=== PATIENT | female | born 1960 | race Caucasian/White ===

== ENCOUNTER → 2018-02-14 09:30 | Outpatient (CLI) | payer OTHER, SELFPAY ==
--- NOTE | 2018-02-14 09:32 | DI.MRI.S_ITS ---
PROCEDURE: MR LUMBAR SPINE WO CON INDICATIONS: Eval L Spine TECHNIQUE: Noncontrast sagittal T1 spin echo and T2 fast echo, sagittal STIR, axial T1 and T2 fast spin echo through the lumbar spine. In cases with scoliosis, additional coronal T2 fast spin echo may be performed. COMPARISON: [facility] [place] , MR, LUMBAR SPINE W/O CONTRAST, 04/30/2007, 10:58. [facility] [place], CR, XR LUMBAR SPINE WITH OBLIQUES, 07/01/2017, 8:57. FINDINGS: Image quality: Excellent. Alignment and Curvature: 5 lumbar type vertebral bodies are present by plain film. There is normal bony alignment. Bone Marrow: Marrow is of normal overall signal. No acute vertebral body compression fractures. There is mild reactive signal within the endplates adjacent to the L3-L4, L4-L5, and L5-S1 intervertebral discs. Spinal Cord: Conus medullaris terminates at the T12-L1 disc space level. Visualized cord demonstrates normal signal and size. Paraspinous Soft Tissues: No paravertebral masses. L1-L2: Mild facet and ligamentum flavum hypertrophy bilaterally. No significant canal, nor foraminal stenosis. L2-L3: Mild facet and ligamentum flavum bilaterally. Mild epidural lipomatosis. Mild canal stenosis. No foraminal stenosis. No change. L3-L4: Mild disc height loss and desiccation. Mild diffuse disc bulge. Moderate bilateral facet hypertrophy. Increased, mild canal stenosis. Increased, mild bilateral foraminal stenosis. L4-L5: Mild disc height loss and desiccation. Mild diffuse disc bulge. Moderate bilateral facet hypertrophy. Increased, mild canal stenosis. Increased, bilateral foraminal stenosis. L5-S1: Mild disc height loss and desiccation. Mild diffuse disc bulge. Mild facet hypertrophy bilaterally. Increased, mild canal stenosis. Increased, moderate bilateral foraminal stenosis. IMPRESSION: 1. Multilevel degenerative disc and facet disease, as well as ligamentum flavum hypertrophy and epidural lipomatosis. 2. Mild multilevel canal stenoses as above. 3. Multilevel foraminal stenoses, worst at L5-S1 bilaterally, where there are moderate foraminal stenoses present. Dictated by: Annemarie Schaefer M.D. on 02/14/2018 at 12:12 Approved by: Annemarie Schaefer M.D. on 02/14/2018 at 12:46
== END ==
PROVIDERS: PCP Family Medicine; Visit Provider Physical Medicine & Rehabilitation
DX: M47.817 Spondylosis without myelopathy or radiculopathy, lumbosacral region (principal); M51.36 Other intervertebral disc degeneration, lumbar region; M51.37 Other intervertebral disc degeneration, lumbosacral region; M48.061 Spinal stenosis, lumbar region without neurogenic claudication; M48.07 Spinal stenosis, lumbosacral region
CPT/HCPCS: 72148

== ENCOUNTER 2018-03-23 08:08 | Outpatient (CLI) | payer OTHER, SELFPAY ==
[2018-03-23] VITALS (9 sets, daily range): BP systolic 123–151; BP diastolic 58–85; PULSE 75–84; RESP 16–18; TEMP 36.7; O2SAT 96–100
--- NOTE | 2018-03-23 08:09 | DI.RAD.S_ITS ---
PROCEDURE: PAIN L/S FACET INJ/BLK 1ST AYAD COMPARISON: None. INDICATIONS: SPONDYLOSIS FINDINGS: Fluoroscopic images demonstrating spinal needles placed at the L5-S1 levels as labeled on the films. Appropriate placement of the needle tip was confirmed with a small injection of contrast material. Dictated by: Ab Anton M.D. on 03/23/2018 at 13:23 Approved by: Ab Anton M.D. on 03/23/2018 at 13:23
[2018-03-23] MEDS: MIDAZOLAM 5 MG/5 ML VIAL IV (09:07)
[2018-03-23] MEDS: IOPAMIDOL 15 ML VIAL 3 ML INJ (09:12)
[2018-03-23] MEDS: BUPIVACAINE 0.5% (PF) VIAL 2 ML INJ (09:12)
[2018-03-23] MEDS: LIDOCAINE 1% 20 ML INJ 10 ML INJ (09:13)
[2018-03-23] MEDS: BETAMETHASONE 30 MG/5 ML MDV 12 MG INJ (09:13)
--- NOTE | 2018-03-23 09:14 | PC.NURSE ---
ASSISTING PT FROM TABLE AND TRANSPORTING TO POST PROC AREA IN STABLE CONDITION
--- NOTE | 2018-03-23 09:25 | PM.PROC.1 ---
Procedures Date/Time Date of procedure: 03/23/18 Time of procedure: 09:25 General Procedure description: PREOP DIAGNOSIS 1. FACET ARTHROPATHY, 2. AXIAL LBP, 3. MULTILEVEL DDD, POST OP DIAGNOSIS 1. FACET ARTHROPATHY, 2. AXIAL LBP, 3. MULTILEVEL DDD, PROCEDURES 1. FLUORSCOPICALLY GUIDED CONTRAST CONTROLLED FACET JOINT INJECTIONS BILATERAL L5/S1 PHUSICIAN: Crispin Quintero, INDICATIONS Funmilayo is referred by Dr. Blanchard for treatment of Axial LBP FINDINGS Multilevel Facet Arthropathy with Clinically significant axial LBP DESCRIPTION OF PROCEDURE Fluoroscopically guided, contrast-controlled bilateral L5/S1 facet joint injections. Following denial of allergy and review of potential side effects and complications, including, but not necessarily limited to, infection, allergic reaction, local tissue breakdown, stroke, temporary or permanent nerve injury, paralysis, and possible , the patient indicated that the patient understood and agreed to proceed. An informed consent document was signed by the patient, witnessed by a nurse, and placed in the patient's chart. Additionally, other treatment options including medications, modalities, and physical therapy were reviewed with the patient. After review of previous anaesthesic history and IV conscious sedation the patient was deemed safe to proceed with todays procedure with IV conscious sedation as ASA class II designation. Safety time-out was performed to confirm patient ID, procedure to be performed and site of procedure. IV sedation was accomplished with a combination of 3mg of Versed administered by the RN after DO order, titrated to patient comfort during the course of the procedure while the patient remained responsive to all verbal commands In the prone position, following sterile prep and drape of the lumbar region, the posterior aspect of the L5/S1 facet joints were identified fluoroscopically. The skin was anesthetized via a 25-gauge 1.5-inch needle with 1% lidocaine solution into the corresponding facet joints. At this point, a 22-gauge 5-inch spinal needle was atraumatically introduced and advanced under fluoroscopic guidance into the corresponding facet joints. Following negative aspiration, injections of approximately 0.2-cc of Isovue 200 confirmed interarticular placement without vascular uptake. The identical procedure was then performed at the L5/S1 facet joints on the left. Radiological data, including multiple fluoroscopic views of the lumbosacral spine, reveal a spinal needle at the L5/S1 facet joints bilaterally. Subsequent views show flow of contrast material both superiorly and inferiorly within the joint space without vascular or intrathecal uptake. At this point, a total of 0.5 cc including a mixture of 0.25 cc Marcaine and 0.25 cc betamethasone was injected without complication into each of the corresponding facet joints. The patient tolerated the procedure well without signs or symptoms of complications prior to transfer to the recovery area continued monitoring without incident. The patient was then transferred to the recovery area where they were observed for an appropriate period of time after the injection. The patient reported a VAS score of 7 prior to the procedure and a post-procedure VAS of 0. Total Fluoroscopy Time: 21.0 seconds Total conscious sedation time: 24 min POST OP INSTRUCTIONS The patient was provided a Pain Log to continue to record their response to the target-specific procedure prior to follow-up visit with their referring physician. Additionally, specific post-injection care instructions and a contact number to our office were provided if concerns arise regarding possible complications associated with the procedure are suspected. Crispin Quintero, Complications: none
--- NOTE | 2018-03-23 09:42 | PC.NURSE ---
Received pt from post procedure. pt awake and able to get from WC to chair without diffiiculty. Resumed monitoring from Nena MYLES
== END 2018-03-23 09:58 ==
LOC: RAD 08:09
PROVIDERS: PCP Family Medicine; Visit Provider Physical Medicine & Rehabilitation
DX: M47.817 Spondylosis without myelopathy or radiculopathy, lumbosacral region (principal); M51.37 Other intervertebral disc degeneration, lumbosacral region; M54.5 Low back pain
CPT/HCPCS: 64493; 99152; J0702; J2250

== ENCOUNTER 2018-08-02 08:52 | Outpatient (CLI) | payer OTHER, SELFPAY ==
[2018-08-02] VITALS (7 sets, daily range): BP systolic 130–163; BP diastolic 61–88; PULSE 69–82; RESP 16–18; TEMP 36.3; O2SAT 96–100
--- NOTE | 2018-08-02 08:53 | DI.RAD.S_ITS ---
PROCEDURE: PAIN L/S FACET INJ/BLK 1ST AYAD COMPARISON: [facility], XA, PAIN L/S FACET INJ/BLK 1ST AYAD, 03/23/2018, 10:09. INDICATIONS: SPONDYLOSIS FINDINGS: IMPRESSION: Dictated by: Alcidse Gale M.D. on 08/02/2018 at 11:09 Approved by: Alcides Gale M.D. on 08/02/2018 at 11:13
[2018-08-02] MEDS: MIDAZOLAM 5 MG/5 ML VIAL IV (09:30)
[2018-08-02] MEDS: fentaNYL 100 MCG/2 ML INJ 50 MCG IV (09:35)
[2018-08-02] MEDS: IOPAMIDOL 15 ML VIAL 3 ML INJ (09:39)
[2018-08-02] MEDS: LIDOCAINE 1% 20 ML INJ 10 ML INJ (09:39)
[2018-08-02] MEDS: BUPIVACAINE 0.5% (PF) VIAL 2 ML INJ (09:40)
[2018-08-02] MEDS: BETAMETHASONE 30 MG/5 ML MDV 12 MG INJ (09:41)
--- NOTE | 2018-08-02 09:48 | PC.NURSE ---
Pt tolerated procedure with 5mg Versed, 50mcg of Fentanyl and premedicated with 10mg valium. Pt was awake through the procedure. Able to get off table with standby assist. Transferred to pre procedure room via wheelchair for continued monitoring with Nena MYLES.
--- NOTE | 2018-08-02 10:00 | P.PCN_ITS ---
Procedures Date/Time Date of procedure: 08/02/18 Time of procedure: 09:55 General Procedure description: POST OP DIAGNOSIS 1. FACET ARTHROPATHY PROCEDURES 1. BILATERAL- L5 and S1 MB BLOCKS PHYSICIAN: Crispin Quintero DO INDICATIONS Funmilayo is referred by Dr. Blanchard for treatment of Bilateral Axial LBP. DESCRIPTION OF PROCEDURE Fluoroscopically guided, contrast-controlled bilateral L5 and S1 medial branch blocks with 0.5cc of 0.5% Marcaine. Following denial of allergy and review of potential side effects and complications, including, but not necessarily limited to, infection, allergic reaction, local tissue breakdown, nerve injury, paralysis, stroke and possible , the patient indicated that the patient understood and agreed to proceed. An informed consent document was signed by the patient, witnessed by a nurse, and placed in the patient's chart. After review of previous anaesthesic history and IV conscious sedation the patient was deemed safe to proceed with todays procedure with IV conscious sedation as ASA class II designation. Safety time-out was performed to confirm patient ID, procedure to be performed and site of procedure. IV sedation was accomplished with a combination of 5mg of Versed and 50mcg of Fentanyl was administered by the RN after DO order, titrated to patient comfort during the course of the procedure while the patient remained responsive to all verbal commands In the prone position, following sterile prep and drape of the lumbar region, the right L5 and S1 anatomical location of the medial branch of the dorsal ramus was identified fluoroscopically. Subsequently an anesthetic skin wheal using 1% lidocaine solution was initiated at each of the anatomical spots. Subsequently then a 22-gauge 3.5-inch spinal needle was atraumatically introduced and advanced under fluoroscopic guidance at each of the corresponding sites at the right L5 and S1 MB. After negative aspiration, 0.2 cc of Isovue 200 was injected, confirming placement without vascular or intrathecal uptake. Subsequently then 0.5 cc of 0.5% Marcaine solution was injected at each of the corresponding sites at the right L5 and S1 medial branch locations. The identical procedure was replicated on the left. The patient tolerated the procedure well without signs or symptoms of complications. The patient tolerated the procedure well without signs or symptoms of complications prior to transfer to the recovery area continued monitoring without incident. Post-procedure, the patient was monitored initiating provocative activities to measure the amount of relief from block of the facetogenic pain. The patient reported a VAS of 7 prior to the procedure and a post-procedure VAS of 1. It has been a pleasure to assist in the diagnostic and therapeutic care of your patient. Total Fluoroscopy Time: 24.8 seconds Total Conscious Sedation Time: 24min POST OP INSTRUCTIONS The patient was provided with a Pain Log to complete over the next several hours and subsequent days prior to the patient's follow up with the ordering physician. 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 The patient is aware, was provided, once again, with a Pain Log and will follow up with the referring physician for review and clinical correlation Crispin Quintero DO Complications: none
--- NOTE | 2018-08-02 10:00 | PC.NURSE ---
ACCEPTED CARE OF PT IN POST PROC AREA IN STABLE CONDITION
--- NOTE | 2018-08-03 12:32 | PC.NURSE ---
Follow up call made for post procedure Bilateral L5,& S1 Medial Branch Blocks. Left message as pt did not answer the phone.
== END 2018-08-02 10:36 | disposition home or self-care (01) ==
LOC: RAD 08:52
PROVIDERS: PCP Family Medicine; Visit Provider Physical Medicine & Rehabilitation
DX: M47.817 Spondylosis without myelopathy or radiculopathy, lumbosacral region (principal); M47.816 Spondylosis without myelopathy or radiculopathy, lumbar region
CPT/HCPCS: 64493; 99152; J0702; J2250; J3010

== ENCOUNTER 2018-11-29 07:59 | Outpatient (CLI) | payer OTHER, SELFPAY ==
[2018-11-29] VITALS (11 sets, daily range): BP systolic 111–157; BP diastolic 50–87; PULSE 63–87; RESP 16; TEMP 36.2; O2SAT 99–100
--- NOTE | 2018-11-29 08:02 | DI.RAD.S_ITS ---
PROCEDURE: PAIN L/S MED/LAT N RFA BILAT INDICATIONS: SPONDYLOSIS FINDINGS: Fluoroscopic spot filming was performed to verify placement of spinal needles at the L5-S1 level(s), as labeled on the films. Appropriate location(s) of the needle tip(s) was confirmed by injection of iodinated contrast. Dictated by: Ab Anton M.D. on 11/29/2018 at 10:25 Approved by: Ab Anton M.D. on 11/29/2018 at 10:29
[2018-11-29] MEDS: MIDAZOLAM 5 MG/5 ML VIAL IV (09:21)
[2018-11-29] MEDS: fentaNYL 100 MCG/2 ML INJ 50 MCG IV ×2 (09:23→09:56)
[2018-11-29] MEDS: BETAMETHASONE 30 MG/5 ML MDV 12 MG INJ (09:33)
[2018-11-29] MEDS: LIDOCAINE 1% 20 ML INJ 10 ML INJ (09:33)
[2018-11-29] MEDS: BUPIVACAINE 0.5% (PF) VIAL 2 ML INJ (09:33)
--- NOTE | 2018-11-29 10:00 | PC.NURSE ---
ASSISTING PT OFF TABLE AND TRANSPORTING TO POST PROC AREA IN STABLE CONDITION
--- NOTE | 2018-11-29 10:03 | P.PCN_ITS ---
Procedures Date/Time Date of procedure: 11/29/18 Time of procedure: 10:02 General Procedure description: Procedure Note PREOP DIAGNOSIS 1. RECALCITRANT FACET ARTHROPATHY, POST OP DIAGNOSIS 1. RECALCITRANT FACET ARTHROPATHY, PROCEDURES 1. BILATERAL L5 MEDIAL BRANCH RADIOFREQUENCY NEUROTOMY AND BILATERAL S1 DORSAL RAMUS BRANCH RADIOFREQUENCY NEUROTOMY. PHYSICIAN: Crispin Quintero, DO INDICATIONS Funmilayo is referred by Dr. Finney for treatment of facet arthropathy. DESCRIPTION OF PROCEDURE Bilateral L5 medial branch radiofrequency neurotomy and bilateral S1 dorsal ramus branch radiofrequency neurotomy under fluoroscopy with conscious sedation. The patient is well known to this clinic having undergone previous facet injections with good but temporary relief. The patient has experienced appropriate, concordant relief with previous facet and median branch blocks but the patient's pain has been recalcitrant to further conservative measures. Therefore, based upon the patient's relief and persistent symptoms, the patient is considered an appropriate candidate for facet rhizotomy. All of the patient's questions regarding the risks versus benefits of the procedure, including, but not limited to, bleeding, infection, temporary as well as lasting nerve injury, paralysis, stroke, and , as well treatment alternatives were answered to satisfaction. After obtaining informed consent, denial of pertinent drug allergies, as well as being made aware of the potential risks of bleeding, infection, spinal cord trauma, paralysis, temporary and permanent nerve damage, seizure, stroke, and possible , the patient was brought to the fluoroscopy suite and positioned prone on the fluoroscopy table. The lumbar region was prepped with Betadine and covered with a fenestrated drape in the usual sterile fashion. Appropriate monitors applied including pulse oximeter, pulse, and blood pressure for regular monitoring throughout the procedure. After review of previous anaesthesic history and IV conscious sedation the patient was deemed safe to proceed with todays procedure with IV conscious sedation as ASA class II designation. Safety time-out was performed to confirm patient ID, procedure to be performed and site of procedure. IV sedation was accomplished with a combination of 5mg of Versed and 10mcg of Fentanyl was administered by the RN after DO order, titrated to patient comfort during the course of the procedure while the patient remained responsive to all verbal commands. After local infiltration using 1% lidocaine, under fluoroscopic guidance, a 10- cm RF insulated needle with a 10-mm active tip was positioned parallel to the junction of the bilateral sacral ala and the superior articulating process where the S1 dorsal ramus resides. Needle placement was confirmed with motor stimulation of .5v on the right; motor stimulation of .6v on the left, which produced local stimulation without radicular component. The stimulation was then increased to 1.5v with, once again, only local multifidus stimulation without radicular component. This was then followed by two discreet lesions performed at 80 degrees Celsius for 90 seconds each. The needle was then removed and the identical procedure was performed along the length of the bilateral L5 medial branch with motor stimulation at .7v on the right; motor stimulation at .6v on the left. The patient tolerated the procedure well without signs or symptoms of complications prior to transfer to the recovery area continued monitoring without incident. The patient was then transferred to the recovery area where they were observed for an appropriate period of time after the injection. The patient reported a VAS score of 9 prior to the procedure and a post- procedure VAS of 0. Total Fluoroscopy Time: 32.1 seconds Total Conscious Sedation Time: 46min POST OP INSTRUCTIONS The patient was provided a Pain Log to continue to record the patient's response to the target-specific procedure prior to the patient's follow-up visit with the referring physician. Additionally, specific post-injection care instructions and a contact number to our office were provided if concerns arise regarding possible complications associated with the procedure are suspected. Crispin Quintero DO Complications: none
--- NOTE | 2018-11-29 10:06 | PC.NURSE ---
pt returned from procedure via wheelchair able to move from w/c to chair with standby assist. Pt awake and alert, resumed monitoring from Nena MYLES.
== END 2018-11-29 11:00 ==
PROVIDERS: PCP Family Medicine; Visit Provider Physical Medicine & Rehabilitation
DX: M47.817 Spondylosis without myelopathy or radiculopathy, lumbosacral region (principal)
CPT/HCPCS: 64635; 99152; 99153; J0702; J2250; J3010

== ENCOUNTER → 2019-01-02 09:43 | Outpatient (CLI) | payer OTHER, SELFPAY ==
[2019-01-02 10:49] LABS: Add Manual Diff / Slide Review NO; Basophils Absolute Auto 0 /uL (0-100); Basophils Percent Auto 0.9 % (0-2); Eosinophils Absolute Auto 100 /uL (0-450); Eosinophils Percent Auto 2.1 % (2-4); Hemoglobin 14.8 g/dL (12.0-16.0); Lymphocytes Absolute Auto 1200 /uL (1100-4500); Lymphocytes Percent Auto 23.4 % (25-40); Mean Corpuscular HGB Conc 34.5 % (30-36); Mean Corpuscular Hemoglobin 32.4 PG (26-34); Mean Corpuscular Volume 94.1 fL (80-100); Monocytes Absolute Auto 400 /uL (0-900); Monocytes Percent Auto 8.4 % (3-14); Neutrophils Absolute Auto 3400 /uL (1500-7000); Neutrophils Percent Auto 65.2 % (50-75); Platelet Count 258 X10^3/uL (150-400); Red Blood Cell Count 4.57 X10^6/uL (4.0-5.2); Red Cell Distribution Width 12.9 % (11.6-14.8); White Blood Cell Count 5.2 X10^3/uL (4.5-11.0)
[2019-01-02 11:30] LABS: Rheumatoid Factor < 8.6 IU/mL (<12.0)
[2019-01-02 11:35] LABS: C-Reactive Protein Quant < 0.5 mg/dL (<1.0)
[2019-01-02 12:00] LABS: TSH w/ Reflex to FT4 3.23 uIU/mL (0.47-4.68)
== END ==
PROVIDERS: Family Provider Family Medicine; PCP Family Medicine; Visit Provider Physical Medicine & Rehabilitation
DX: M47.816 Spondylosis without myelopathy or radiculopathy, lumbar region (principal); M47.817 Spondylosis without myelopathy or radiculopathy, lumbosacral region
CPT/HCPCS: 36415; 84443; 85025; 86140; 86430

== ENCOUNTER 2019-02-24 13:41 | Outpatient (CLI) | payer OTHER, SELFPAY ==
[2019-02-24] VITALS (8 sets, daily range): BP systolic 140–164; BP diastolic 61–88; PULSE 65–73; RESP 16–18; TEMP 36.1; O2SAT 99–100
--- NOTE | 2019-02-24 13:42 | DI.RAD.S_ITS ---
PROCEDURE: PAIN SI JOINT INJECTION AYAD COMPARISON: None. INDICATIONS: SACROCOCCYGEAL DISORDER FINDINGS: 6 intraoperative fluoroscopy images demonstrate bilateral SI joint injection. IMPRESSION: Fluoroscopy for management. Dictated by: Cira Cummins M.D. on 02/24/2019 at 17:09 Approved by: Cira Cummins M.D. on 02/24/2019 at 17:09
[2019-02-24] MEDS: MIDAZOLAM 5 MG/5 ML VIAL IV (14:42)
[2019-02-24] MEDS: fentaNYL 100 MCG/2 ML INJ 50 MCG IV (14:42)
[2019-02-24] MEDS: BETAMETHASONE 30 MG/5 ML MDV 12 MG INJ (14:52)
[2019-02-24] MEDS: LIDOCAINE 1% 20 ML 10 ML INJ (14:52)
[2019-02-24] MEDS: BUPIVACAINE 0.5% (PF) VIAL 2 ML INJ (14:52)
[2019-02-24] MEDS: IOPAMIDOL 15 ML VIAL 3 ML INJ (14:52)
--- NOTE | 2019-02-24 14:57 | PC.NURSE ---
ASSISTING PT OFF TABLE AND TRANSPORTING TO POST PROC AREA IN STABLE CONDITION.
--- NOTE | 2019-02-24 15:02 | PM.PROC.1 ---
Procedures Date/Time Date of procedure: 02/24/19 Time of procedure: 15:02 General Procedure description: PREOP Dx: Sacroiliac joint pain/DJD POST OP DX: Sacroiliac Joint Pain/DJD Procedures: Fluoroscopic guided contrast controlled bilateral sacroiliac joint injection Physician: Crispin Quintero D.O. Indications: Funmilayo is referred by Dr. Finney for treatment of right sacroiliac joint DJD Description of procedure Fluoroscopic guided, contrast controlled bilateral sacroiliac joint injection Following review of allergies and review of potential side effects and complications, including, but not necessarily limited to, infection, allergic reaction, local tissue breakdown, temporary as well as permanent nerve injury, paralysis, stroke and possible , the patient indicated that they understood and agreed to proceed. An informed consent was signed by the patient, witnessed by a nurse, and placed in the patient's chart. Additionally, other treatment options including modalities, medications, and physical therapy were reviewed with the patient. After review of previous anaesthesic history and IV conscious sedation the patient was deemed safe to proceed with todays procedure with IV conscious sedation as ASA class II designation. Safety time-out was performed to confirm patient ID, procedure to be performed and site of procedure. IV sedation was accomplished with a combination of 4mg Versed and 50mcg of Fentanyl were administered by the RN after DO order, titrated to patient comfort during the course of the procedure while the patient remained responsive to all verbal commands In the prone position following sterile prep and drape of the pelvic region, the hyper lucency on in the inferior aspect of the sacroiliac joint was identified fluoroscopically the skin was anesthetized be a 25 gauge 1 eventual with approximately 2 cc of 1% lidocaine solution. At this point, a 22 gauge 3 in spinal needle was atraumatically introduced and advanced under fluoroscopic guidance into the inferior aspect of the right sacroiliac joint. Following negative aspiration, approximately 0.3 cc of Isovue-300 was injected confirming intra-articular placement without vascular uptake. Radiographic data, including multiple fluoroscopic views of the pelvis, reveals a spinal needle in the sacroiliac joint hyper lucent zone. Subsequent view show flow contrast tear superiorly and inferiorly within the joint capsule without vascular intrathecal uptake. At this point a total of 1 cc or 0 8 of 0.5% Marcaine was combined with 1 cc of 6 mg of betamethasone was injected without incident. Attention was then refocused the left sacroiliac joint where the procedure was replicated. The procedure tolerated the procedure well without signs or symptoms of complications prior to transfer to the recovery area continued monitoring without incident. The patient was then transferred to the recovery area with a bur observed for an appropriate time after the injection. The patient reverted a vas score of 7 prior to the procedure and postprocedure vas of 1. Total fluoroscopy time: 22.7 sec Total conscious sedation time: 24 min Postop instructions The patient was provided with a pain like to continue to record the patient's response to the target specific procedure prior to the patient's follow-up visit with the referring physician. Additionally, specific post injection care instructions and a contact number to our office were provided if concerns arise regarding the possible complications associated with procedure are suspected. Crispin Quintero D.O. Complications: none
== END 2019-02-24 15:30 | disposition home or self-care (01) ==
LOC: RAD 13:42
PROVIDERS: Family Provider Family Medicine; PCP Family Medicine; Visit Provider Physical Medicine & Rehabilitation
DX: M53.3 Sacrococcygeal disorders, not elsewhere classified (principal); M47.898 Other spondylosis, sacral and sacrococcygeal region
CPT/HCPCS: 27096; 99152; J0702; J2250; J3010